=== PATIENT | female | born 1975 | race Caucasian/White ===

== ENCOUNTER 2017-02-14 18:26 | Emergency (ER) | payer BC ==
[~2017-02-14] VITALS: Ht 175.3 cm; Wt 101.0 kg
[~2017-02-14 18:26] MED LIST: ALLO100T30 PO; AMLO5TAB4 PO; CIPR500T87 PO; CLON1TAB23 PO; LEVO125T5 PO; LISI-170 PO; METH750T2 PO; METR500T PO; OXYC-307 PO; OXYC80TA25 PO; PROM25SU34 RC
[2017-02-14 18:28] VITALS: BP 179/121
[2017-02-14 18:50] LABS: HEMOGLOBIN 14.4 g/dL (11.7-16.4); WHITE BLOOD COUNT 13.3 x10^3/uL (3.4-10)
[2017-02-14] MEDS ORDERED: ONDANSETRON 2MG/ML, 2ML IVPush ONE (19:00)
[2017-02-14] MEDS ORDERED: MORPHINE SULFATE 4 MG/ML, 1ML IVPush PRN (19:00)
[2017-02-14] MEDS ORDERED: SODIUM CHLORIDE 0.9% 1,000ML IV ONE (19:00)
[2017-02-14] MEDS ORDERED: SODIUM CHLORIDE FLUSH 10ML SYR IVF ONE (19:00)
[2017-02-14] MEDS ORDERED: KETOROLAC 30 MG/1 ML IVPush ONE (19:00)
[2017-02-14 19:01] LABS: ASPARTATE AMINO TRANSFERASE 35 U/L (15-37); BLOOD UREA NITROGEN 11 mg/dL (7-18)
[2017-02-14] MEDS ORDERED: KETOROLAC 30 MG/1 ML ONE (19:12)
[2017-02-14] MEDS ORDERED: ONDANSETRON 2MG/ML, 2ML ONE (19:13)
[2017-02-14] MEDS ORDERED: morphine SULFATE 10 MG/ML, 1ML ONE ×2 (19:14→20:53)
[2017-02-14 19:55] LABS: PATH.CAST-FLAG NOT PRESENT; SPERM-FLAG NOT PRESENT; SRC-FLAG NOT PRESENT; XTAL-FLAG NOT PRESENT; YLC-FLAG NOT PRESENT
[2017-02-14] MEDS ORDERED: MORPHINE SULFATE 4 MG/ML, 1ML IVPush ONE (21:00)
== END 2017-02-14 21:28 | disposition home or self-care (01) ==
LOC: ED 19:39
DX: N20.1 Calculus of ureter (principal); R73.9 Hyperglycemia, unspecified; I10 Essential (primary) hypertension
CPT/HCPCS: 36415; 76700; 80053; 81001; 83690; 84703; 85025; 87086; 96361; 96374; 96375; 96376; 99285; J1885; J2405; J7030